=== PATIENT | female | born 1980 | race Caucasian/White ===

== ENCOUNTER 2016-12-14 21:53 | Emergency (ER) | payer BC ==
[2016-12-14 22:06] VITALS: BP 124/97
[2016-12-14 22:23] LABS: BILIRUBIN,URINE NEGATIVE (NEG); GLUCOSE,URINE NEGATIVE (NEG); NITRITE,URINE POSITIVE (NEG); PH,URINE 6.5; PROTEIN,URINE 100 mg/dL (NEG-TRACE)
[2016-12-14] MEDS ORDERED: NITR100C62 PO (22:26)
[2016-12-14] MEDS ORDERED: PHEN100T82 PO (22:26)
--- NOTE | 2016-12-14 22:26 | PHYS DOC ---
Past Medical History Past Medical History: Other Additional Past Medical Histor: VERTIGO Past Surgical History: Other Additional Past Surgical Histo: HEMORRHOIDECTOMY, JAW SURG Alcohol Use: Occasionally Drug Use: None Adult General Chief Complaint Chief Complaint: PAIN ON URINATION HPI HPI Patient is a 36 year old female presents emergency department stating that she' s been having urinary frequency and urgency that started today. Patient states that she just finished her menstrual cycle. She denies any nausea or vomiting. She does state she has right lower back pain and discomfort. She denies any vaginal discharge. She denies fever, chills. Review of Systems Review of Systems Constitutional: Denies fever or chills [] Eyes: Denies change in visual acuity, redness, or eye pain [] HENT: Denies nasal congestion or sore throat [] Respiratory: Denies cough or shortness of breath [] Cardiovascular: No additional information not addressed in HPI [] GI: Denies abdominal pain, nausea, vomiting, bloody stools or diarrhea [] : dysuria denies hematuria [] Musculoskeletal: Denies back pain or joint pain [] Integument: Denies rash or skin lesions [] Neurologic: Denies headache, focal weakness or sensory changes [] Allergies Allergies Allergies Coded Allergies Type Severity Reaction Last Updated Verified No Known Drug Allergies 05/17/15 No Physical Exam Physical Exam Constitutional: Well developed, well nourished, no acute distress, non-toxic appearance. [] HENT: Normocephalic, atraumatic, bilateral external ears normal, oropharynx moist, no oral exudates, nose normal. [] Eyes: PERRLA, EOMI, conjunctiva normal, no discharge. [] Neck: Normal range of motion, no tenderness, supple, no stridor. [] Cardiovascular:Heart rate regular rhythm, no murmur [] Lungs & Thorax: Bilateral breath sounds clear to auscultation [] Skin: Warm, dry, no erythema, no rash. [] Back: No tenderness, no CVA tenderness. [] Extremities: No tenderness, no cyanosis, no clubbing, ROM intact, no edema. [] Neurologic: Alert and oriented X 3, normal motor function, normal sensory function, no focal deficits noted. [] Psychologic: Affect normal, judgement normal, mood normal. [] Current Patient Data Vital Signs Vital Signs Date Time Temp Pulse Resp B/P Pulse Ox O2 Delivery O2 Flow Rate FiO2 12/14/16 22:06 97.6 99 18 98 Room Air 97.6 Lab Values Laboratory Tests Test 12/14/16 22:10 Urine Collection Type Unknown Urine Color Jazzy Urine Clarity Cloudy Urine pH 6.5 Urine Specific [place] 1.025 Urine Protein 100mg/dL (NEG-TRACE) Urine Glucose (UA) Negativemg/dL (NEG) Urine Ketones (Stick) Tracemg/dL (NEG) Urine Blood Large (NEG) Urine Nitrite Positive (NEG) Urine Bilirubin Negative (NEG) Urine Urobilinogen Dipstick 1.0mg/dL (0.2 mg/dL) Urine Leukocyte Esterase Large (NEG) Urine RBC 0/HPF (0-2) Urine WBC >40/HPF (0-4) Urine Squamous Epithelial Cells Occ/LPF Urine Bacteria Few/HPF (0-FEW) Urine Mucus Slight/LPF EKG EKG [] Radiology/Procedures Radiology/Procedures [] Course & Med Decision Making Course & Med Decision Making Pertinent Labs and Imaging studies reviewed. (See chart for details) Urine test was negative. Was positive for urinary tract infection. Patient will be discharged home with Macrobid and Pyridium. Patient was instructed to drink plenty fluids such as water and cranberry juice. Avoid cranberry juice cocktail, carbonate beverages citrus fruits and alcohol. Patient was provided with signs and symptoms to return back to the emergency department. Patient agrees with discharge instructions treatment regimens and follow-up recommendations. [] Dragon Disclaimer Dragon Disclaimer This electronic medical record was generated, in whole or in part, using a voice recognition dictation system. Departure Departure Impression: Primary Impression: UTI (urinary tract infection) Disposition: 01 HOME, SELF-CARE Condition: STABLE Referrals: KAYLYNN LAY (PCP) Patient Instructions: Urinary Tract Infection, [id number] Additional Instructions: Activity as tolerated. Tylenol or ibuprofen for lower back pain and discomfort. Medications as prescribed. Drink plenty of fluids such as water, and cranberry juice. Avoid cranberry juice cocktail, carbonated beverages, citrus fruits and alcohol disease are considered irritations to the bladder. Follow-up to primary care physician in the next 7-10 days. Return back to emergency prior signs symptoms of become worse. Scripts Phenazopyridine Hcl (Pyridium)100 Mg [id number] Mg PO TID #9 TAB Prov:ZEINA CARPIO NP 12/14/16 Nitrofurantoin Monohyd/M-Cryst (Macrobid 100 Mg Capsule)100 Mg Capsule1 Cap PO BID #14 CAP Prov:ZEINA CARPIO TECHNICAL CLERK 12/14/16 ZEINA CARPIO TECHNICAL CLERK Dec 14, 2016 22:26
[2016-12-14 22:32] LABS: RBC,URINE 0 /HPF (0-2); WBC,URINE >40 /HPF (0-4)
[2016-12-14 22:33] LABS: BACTERIA,URINE FEW /HPF (0-FEW); SQUAMOUS EPITHELIAL CELL,UR OCC /LPF
== END 2016-12-14 22:48 | disposition home or self-care (01) ==
LOC: ER 21:53
DX: N39.0 Urinary tract infection, site not specified (principal)
CPT/HCPCS: 81001; 81025; 87086; 99284